=== PATIENT | female | born 1960 ===

== ENCOUNTER 2017-04-03 08:39 | Day surgery (SDC) | payer OTHER ==
[2017-04-03 09:07] VITALS: BMI 23.1
[2017-04-03] MEDS ORDERED: Propofol 10 mg/ml Inj (20 ML) ONE ×2 (09:47→09:56)
[2017-04-03 10:27] VITALS: O2SAT 100
[2017-04-03 12:09] VITALS: BP 129/84; PULSE 63; RESP 12; TEMP 97.9
== END 2017-04-03 11:25 | disposition home or self-care (01) ==
LOC: C.ENDO 08:39
PROVIDERS: ATTEND Internal Medicine Gastroenterology
DX: Z12.11 Encounter for screening for malignant neoplasm of colon (principal); D12.5 Benign neoplasm of sigmoid colon; K57.30 Diverticulosis of large intestine without perforation or abscess without bleeding; K64.8 Other hemorrhoids
CPT/HCPCS: 45380; 82948; 88305; J2704

== ENCOUNTER 2018-01-01 11:02 | Emergency (ER) | payer OTHER ==
[2018-01-01 11:02] VITALS: BMI 21.6
[2018-01-01 11:24] VITALS: O2SAT 98
--- NOTE | 2018-01-01 15:38 | C.PDOC ---
Time Seen by Provider: 01/01/18 13:38 Chief Complaint (Nursing): Flu-like Symptoms History Per: Patient, [employer] History/Exam Limitations: language barrier Onset/Duration Of Symptoms: Hrs (since this morning) Current Symptoms Are (Timing): Still Present Associated Symptoms: Sore Throat, Cough, Myalgias, Nasal Congestion Severity: Moderate Additional History Per: Prior Records Past Medical History Reviewed: Historical Data, Nursing Documentation, Vital Signs Vital Signs: Last Vital Signs Temp 98.2 F 01/01/18 11:21 Pulse 79 01/01/18 11:21 Resp 16 01/01/18 11:21 BP 147/78 01/01/18 11:21 Pulse Ox 98 01/01/18 11:21 - Medical History PMH: Diabetes, Gastritis, HTN, Hypercholesterolemia, Osteoporosis (OSTEOPENIA) Surgical History: Endoscopy, Hernia Repair - [facility] Procedures INSERTION OF INFUSION DEV INTO SUP VENA CAVA, PERC APPROACH (02/22/17) ULTRASONOGRAPHY OF RIGHT UPPER EXTREMITY VEINS, GUIDANCE (02/22/17) Family History: States: Unknown Family Hx - Social History Hx Tobacco Use: No Hx Alcohol Use: No Hx Substance Use: No - Immunization History Hx Tetanus Toxoid Vaccination: No Hx Influenza Vaccination: No Hx Pneumococcal Vaccination: No Review Of Systems Except As Marked, All Systems Reviewed And Found Negative. Constitutional: Positive for: Fever (subjective), Malaise Eyes: Positive for: Other (tearing). Negative for: Redness ENT: Negative for: Ear Pain Respiratory: Positive for: Cough. Negative for: Shortness of Breath, Hemoptysis Gastrointestinal: Negative for: Vomiting, Abdominal Pain, Diarrhea Genitourinary: Negative for: Dysuria Musculoskeletal: Negative for: Neck Pain Skin: Negative for: Rash Neurological: Negative for: Weakness, Numbness Physical Exam - Physical Exam Appears: Non-toxic, No Acute Distress Skin: Normal Color, Warm, Dry Head: Atraumatic, Normacephalic Eye(s): bilateral: PERRL, EOMI Oral Mucosa: Moist, No Drooling, No Trismus Neck: Normal ROM, Supple Lymphatic: No Adenopathy Cardiovascular: Rhythm Regular Respiratory: Normal Breath Sounds, No Accessory Muscle Use Gastrointestinal/Abdominal: Soft, No Tenderness Extremity: Normal ROM, No Calf Tenderness Neurological/Psych: Oriented x3, Normal Speech, Normal Motor, Normal Sensation ED Course And Treatment ECG: Interpreted By Me, Viewed By Me ECG Rhythm: Sinus Rhythm ECG Interpretation: No Acute Changes Rate From EC O2 Sat by Pulse Oximetry: 98 Pulse Ox Interpretation: Normal Disposition Counseled Patient/Family Regarding: Studies Performed, Diagnosis, Need For Followup, Rx Given - Disposition Referrals: [facility] [Outside] Disposition: HOME/ ROUTINE Disposition Time: 15:41 Condition: STABLE Additional Instructions: Drink plenty of fluids. Follow up in the clinic. Return to the ER if you develop shortness of breath, worsening of symptoms or if you have any other concerns. Prescriptions: Benzonatate 200 mg PO TID PRN #15 capsule PRN Reason: Cough Ibuprofen [Motrin Tab] 600 mg PO Q8 PRN #15 tab PRN Reason: Pain, Moderate (4-7) Instructions: Cold Symptoms (ED) Print Language: LITHUANIAN - Clinical Impression Clinical Impression: Influenza-like illness
[2018-01-01 16:15] VITALS: BP 149/84; PULSE 71; RESP 18; TEMP 99.2
--- NOTE | 2018-01-03 16:40 | CARD ---
APPROVED REPORT EKG Measurement Heart [id number] <Conclusion> Normal sinus rhythm Normal ECG
== END 2018-01-01 16:40 | disposition home or self-care (01) ==
LOC: C.ER 11:02
DX: J11.1 Influenza due to unidentified influenza virus with other respiratory manifestations (principal)